=== PATIENT | male | born 1980 | race Caucasian/White ===

== ENCOUNTER 2020-08-07 02:05 | Emergency (ER) | payer BC | END 2020-08-07 08:35 | disposition home or self-care (01) | LOC: ER1 02:05 | DX: R04.0 Epistaxis (principal) | CPT/HCPCS: 30901; 99283 ==

== ENCOUNTER 2020-08-09 13:43 | Emergency (ER) | payer BC | END 2020-08-09 15:30 | disposition home or self-care (01) | LOC: ER1 13:43 | DX: R04.0 Epistaxis (principal) | CPT/HCPCS: 99283 ==